=== PATIENT | female | born 1950 | race American Indian/Alaskan Native ===

== ENCOUNTER 2019-01-04 16:21 | Emergency (ER) | payer SELFPAY ==
[2019-01-04] MEDS ORDERED: NACL 0.9% 1000 ML IV ONE (16:37)
--- NOTE | 2019-01-04 16:41 | Emergency Department Report ---
Blank Doc - Documentation Documentation: C/O fever, dysuria, time 1 weeks. PMH Dm, HTN This initial assessment diagnostic orders/clinical plan/treatment (s) is/Are subject change based on patient's health status, clinical progression and re- assessment by fellow clinical providers in the ED. Further treatment and work-up at subsequent clinical providers discretion. Patient/guardians urged not to elope from their condition may be serious if not clinically assessed and managed. Initial order include: Code sepsis
--- NOTE | 2019-01-04 16:58 | Emergency Department Report ---
ED General Adult HPI - General Chief complaint: Urogenital-Female Stated complaint: HIGHFEVER/POSS UTI/DEHYDRATED Time Seen by Provider: 01/04/19 16:35 Source: patient Mode of arrival: Ambulatory Limitations: No Limitations - History of Present Illness Initial comments: Patient is a 68-year-old female that presents emergency room with complaints of dysuria and fever. Patient states that her symptoms started about 24 hours ago and have been worsening. Patient denies pain. Patient denies back pain. Patient denies abdominal pain. Patient denies nausea vomiting. Patient states she is just not feeling good. Patient complains of fatigue. -: Sudden Severity scale (0 -10): 0 Consistency: constant Improves with: rest Worsens with: other (urination) Associated Symptoms: fever/chills, malaise. denies: confusion, chest pain, cough, diaphoresis, headaches, loss of appetite, nausea/vomiting, rash, seizure, shortness of breath, syncope, weakness Treatments Prior to Arrival: none - Related Data Home Medications Medication Instructions Recorded Confirmed Last Taken Aspirin EC [Aspirin Enteric Coated 1 tab PO DAILY 11/08/14 11/08/14 11/07/14 TAB] Clopidogrel Bisulfate [Plavix] 75 mg PO DAILY 11/08/14 11/08/14 11/07/14 Glimepiride [Amaryl] 2 mg PO QAM 11/08/14 11/08/14 11/07/14 HYDROcodone/APAP 5-325 [[place] 1 tab PO TID 11/08/14 11/08/14 11/07/14 5-325 mg TAB] Insulin Lispro [HumaLOG] 0 - 20 unit SQ TID 11/08/14 11/08/14 11/07/14 Methocarbamol [Robaxin] 750 mg PO Q8H PRN 11/08/14 11/08/14 11/07/14 Telmisartan Tab [Micardis] 40 mg PO QDAY 11/08/14 11/08/14 11/07/14 Triamter/Hctz 37.5-25 mg 0.5 tab PO DAILY 11/08/14 11/08/14 11/07/14 [Maxzide-25] Verapamil HCl [Verelan] 360 mg PO DAILY 11/08/14 11/08/14 11/07/14 cloNIDine [Catapres] 0.1 mg PO BID 11/08/14 11/08/14 11/07/14 metFORMIN [Glucophage] 500 mg PO BID 11/08/14 11/08/14 11/07/14 Previous Rx's Medication Instructions Recorded Last Taken Type Cyclobenzaprine [Flexeril 10mg] 10 mg PO TID PRN #30 tablet 11/08/14 Unknown Rx Oxycodone HCl/Acetaminophen 1 each PO Q6HR PRN #30 tablet 11/08/14 Unknown Rx [Percocet 10-325 mg] Sulfamethoxazole/Trimethoprim 1 each PO BID 10 Days #20 tablet 01/04/19 Unknown Rx [Bactrim Ds Tablet] Allergies Allergy/AdvReac Type Severity Reaction Status Date / Time No Known Allergies Allergy Verified 01/04/19 19:15 ED Review of Systems ROS: Stated complaint: HIGHFEVER/POSS UTI/DEHYDRATED Other details as noted in HPI Constitutional: chills, fever, malaise Eyes: denies: eye pain, eye discharge, vision change ENT: denies: ear pain, throat pain Respiratory: denies: cough, shortness of breath, wheezing Cardiovascular: denies: chest pain, palpitations Endocrine: no symptoms reported Gastrointestinal: denies: abdominal pain, nausea, diarrhea Genitourinary: urgency, dysuria, frequency. denies: discharge Musculoskeletal: denies: back pain, joint swelling, arthralgia Skin: denies: rash, lesions Neurological: denies: headache, weakness, paresthesias Psychiatric: denies: anxiety, depression Hematological/Lymphatic: denies: easy bleeding, easy bruising ED Past Medical Hx - Past Medical History Previous Medical History?: Yes Hx Hypertension: Yes Hx CVA: Yes (TIAx2) Hx Diabetes: Yes - Surgical History Past Surgical History?: Yes Additional Surgical History: partial hysterectomy - Family History Family history: no significant - Social History Smoking Status: Never Smoker Substance Use Type: Alcohol - Medications Home Medications: Home Medications Medication Instructions Recorded Confirmed Last Taken Type Aspirin EC [Aspirin Enteric Coated 1 tab PO DAILY 11/08/14 11/08/14 11/07/14 History TAB] Clopidogrel Bisulfate [Plavix] 75 mg PO DAILY 11/08/14 11/08/14 11/07/14 History Cyclobenzaprine [Flexeril 10mg] 10 mg PO TID PRN #30 tablet 11/08/14 Unknown Rx Glimepiride [Amaryl] 2 mg PO QAM 11/08/14 11/08/14 11/07/14 History HYDROcodone/APAP 5-325 [[place] 1 tab PO TID 11/08/14 11/08/14 11/07/14 History 5-325 mg TAB] Insulin Lispro [HumaLOG] 0 - 20 unit SQ TID 11/08/14 11/08/14 11/07/14 History Methocarbamol [Robaxin] 750 mg PO Q8H PRN 11/08/14 11/08/14 11/07/14 History Oxycodone HCl/Acetaminophen 1 each PO Q6HR PRN #30 tablet 11/08/14 Unknown Rx [Percocet 10-325 mg] Telmisartan Tab [Micardis] 40 mg PO QDAY 11/08/14 11/08/14 11/07/14 History Triamter/Hctz 37.5-25 mg 0.5 tab PO DAILY 11/08/14 11/08/14 11/07/14 History [Maxzide-25] Verapamil HCl [Verelan] 360 mg PO DAILY 11/08/14 11/08/14 11/07/14 History cloNIDine [Catapres] 0.1 mg PO BID 11/08/14 11/08/14 11/07/14 History metFORMIN [Glucophage] 500 mg PO BID 11/08/14 11/08/14 11/07/14 History Sulfamethoxazole/Trimethoprim 1 each PO BID 10 Days #20 tablet 01/04/19 Unknown Rx [Bactrim Ds Tablet] ED Physical Exam - General Limitations: No Limitations General appearance: alert, in no apparent distress - Head Head exam: Present: atraumatic, normocephalic - Eye Eye exam: Present: normal appearance - ENT ENT exam: Present: mucous membranes moist - Neck Neck exam: Present: normal inspection - Respiratory Respiratory exam: Present: normal lung sounds bilaterally. Absent: respiratory distress, wheezes, rales, rhonchi - Cardiovascular Cardiovascular Exam: Present: regular rate, normal rhythm. Absent: systolic murmur, diastolic murmur, rubs, gallop - GI/Abdominal GI/Abdominal exam: Present: soft, normal bowel sounds. Absent: distended, tenderness, guarding, rebound - Rectal Rectal exam: Present: deferred - Extremities Exam Extremities exam: Present: normal inspection, full ROM - Back Exam Back exam: Present: normal inspection. Absent: tenderness, CVA tenderness (R), CVA tenderness (L) - Neurological Exam Neurological exam: Present: alert, oriented X3 - Psychiatric Psychiatric exam: Present: normal affect, normal mood - Skin Skin exam: Present: warm, dry, intact, normal color. Absent: rash ED Course Vital Signs 01/04/19 01/04/19 01/04/19 16:35 16:58 17:01 Temperature 101.6 F H Pulse Rate 124 H 110 H 107 H Respiratory 20 13 11 L Rate Blood Pressure 219/100 154/76 O2 Sat by Pulse 97 97 Oximetry 01/04/19 01/04/19 01/04/19 17:15 17:31 17:45 Temperature Pulse Rate 97 H 95 H Respiratory 12 10 L 17 Rate Blood Pressure 154/76 154/76 154/76 O2 Sat by Pulse 99 99 95 Oximetry 01/04/19 01/04/19 01/04/19 18:01 18:15 18:26 Temperature Pulse Rate 96 H 94 H Respiratory 9 L 7 L 15 Rate Blood Pressure 191/77 O2 Sat by Pulse 100 96 99 Oximetry 01/04/19 01/04/19 01/04/19 18:31 18:45 19:01 Temperature Pulse Rate 72 107 H Respiratory 8 L 11 L 13 Rate Blood Pressure 191/77 191/77 159/67 O2 Sat by Pulse 99 99 100 Oximetry 01/04/19 01/04/19 01/04/19 19:15 19:31 19:55 Temperature 99.4 F Pulse Rate Respiratory 10 L 11 L Rate Blood Pressure 165/79 133/64 O2 Sat by Pulse 99 99 Oximetry - Reevaluation(s) Reevaluation #1: Patient connected to a residential monitor. Blood pressure is 140/80 on the residential monitor. Heart rate is 93. Patient does not appear to be septic. Code sepsis will be canceled. 01/04/19 17:00 Discussed all results with patient. Blood pressure elevated ER. Patient states that she has not taken her medications today. Patient states that she takes all 5 of her blood pressure medications at night. Patient given discharge instructions. Patient voiced understanding of discharge instructions 01/04/19 18:58 Patient's current blood pressure is 165/90. Patient will be discharged home. Instructed to take her blood pressure medications as she was previously directed by her primary care and outpatient physicians 01/04/19 19:17 Patient's temperature is improving. Patient states she feels better. Patient will be discharged home. While in ER patient's vital signs temperature have improved. 01/04/19 20:02 ED Medical Decision Making - Lab Data Result diagrams: 01/04/19 16:42 01/04/19 16:42 - Medical Decision Making Patient is 68-year-old female that presents emergency room with complaints of dysuria. Patient denied any pain. Patient also found to have a fever and tachycardia in triage. While in triage, a code sepsis was called. Sepsis was canceled due to the fact the patient's white count was normal and heart rate normalized and his lactic acid negative. His believe that the patient is not septic. His believe the patient just a simple UTI. Patient given antibiotics in the ER. Patient given fluids. Patient is stable for discharge. Patient's labs unremarkable. Patient will be given antibiotics orally to take at home. Patient will start antibiotics in the morning. - Differential Diagnosis uti. dysuria Critical care attestation.: If time is entered above; I have spent that time in minutes in the direct care of this critically ill patient, excluding procedure time. ED Disposition Clinical Impression: Tachycardia Hypertension Qualifiers: Hypertension type: essential hypertension Qualified Code(s): I10 - Essential (primary) hypertension UTI (urinary tract infection) Qualifiers: Urinary tract infection type: acute cystitis Hematuria presence: with hematuria Qualified Code(s): N30.01 - Acute cystitis with hematuria Fever Qualifiers: Fever type: unspecified Qualified Code(s): R50.9 - Fever, unspecified Disposition: DC-01 TO HOME OR SELFCARE Is pt being admited?: No Does the pt Need Aspirin: No Condition: Stable Instructions: Urinary Tract Infection in Women (ED), Fever in Adults (ED), Dysuria (ED), Hypertension (ED) Additional Instructions: Patient the follow up with primary care in 2-3 days. Patient to return to your condition worsens. Patient to increase water. Patient to rest. Patient take meds as directed. Patient take Tylenol or ibuprofen when necessary for pain or fever. Prescriptions: Sulfamethoxazole/Trimethoprim [Bactrim Ds Tablet] 1 each PO BID 10 Days #20 tablet Referrals: [facility], MD [Primary Care Provider] - 2-3 Days Time of Disposition: 20:05
[2019-01-04 17:13] LABS: Basophils % (Auto) 0.5 % (0.0-1.8); Eosinophils % (Auto) 0.1 % (0.0-4.3); Hematocrit 38.5 % (30.3-42.9); Hemoglobin 13.4 gm/dl (10.1-14.3); Lymphocytes # (Auto) 1.3 K/mm3 (1.2-5.4); Lymphocytes % (Auto) 17.4 % (13.4-35.0); Mean Corpuscular HGB Conc 35 % (30-34); Mean Corpuscular Hemoglobin 28 pg (28-32); Mean Corpuscular Volume 80 fl (79-97); Monocytes # (Auto) 0.8 K/mm3 (0.0-0.8); Monocytes % (Auto) 10.2 % (0.0-7.3); Platelet Count 163 K/mm3 (140-440); Red Blood Count 4.83 M/mm3 (3.65-5.03); Red Cell Distribution Width 15.3 % (13.2-15.2)
[2019-01-04 17:30] LABS: Alanine Aminotransferase 11 units/L (7-56); Albumin 4.2 g/dL (3.9-5); BUN/Creatinine Ratio 14; Blood Urea Nitrogen 10 mg/dL (7-17); Calcium 9.4 mg/dL (8.4-10.2); Hemolysis Index 2
[2019-01-04] MEDS ORDERED: MAXIPIME/NS 1 GM/100 ML 1 GM/100 ML BAG IV ONE (17:42)
[2019-01-04 18:42] LABS: Bacteria,Urine 1+ /HPF (Negative); Bilirubin,Urine NEG (Negative); Blood,Urine NEG (Negative); Color,Urine Yellow (Yellow); Mucus,Urine FEW /HPF
[2019-01-04 18:52] LABS: WBC,Urine > 182.0 /HPF (0.0-6.0)
[2019-01-04] MEDS ORDERED: TYLENOL PO ONE (19:05)
[2019-01-04] MEDS ORDERED: TYLENOL ONE (19:08)
[2019-01-04 19:42] VITALS: BP 133/64
== END 2019-01-04 20:25 | disposition home or self-care (01) ==
LOC: ED 16:21
DX: N39.0 Urinary tract infection, site not specified (principal); R50.9 Fever, unspecified; R53.83 Other fatigue; R00.0 Tachycardia, unspecified; I10 Essential (primary) hypertension; E11.9 Type 2 diabetes mellitus without complications; Z86.73 Personal history of transient ischemic attack (TIA), and cerebral infarction without residual deficits; Z90.710 Acquired absence of both cervix and uterus; Z79.4 Long term (current) use of insulin
CPT/HCPCS: 36415; 80053; 81001; 82140; 82962; 85025; 87040; 87086; 96365; 99284; J0692; J7030

== ENCOUNTER 2019-09-13 05:16 | Observation (INO) | payer BC, MEDICARE ==
--- NOTE | 2019-09-13 07:01 | XRay Report ---
CHEST 1 VIEW 09/13/2019 6:34 AM INDICATION / CLINICAL INFORMATION: Dysrhythmia. COMPARISON: None available. FINDINGS: SUPPORT DEVICES: None. HEART / MEDIASTINUM: No significant abnormality. LUNGS / PLEURA: No significant pulmonary or pleural abnormality. No pneumothorax. ADDITIONAL FINDINGS: No significant additional findings. IMPRESSION: 1. No acute findings. Signer Name: Moose Verduzco MD Signed: 09/13/2019 6:56 AM Workstation Name: [id number]
[2019-09-13] MEDS ORDERED: hydrALAZINE 20 MG/1 ML INJ IV ONE ×2 (07:10→10:10)
--- NOTE | 2019-09-13 07:13 | Emergency Department Report ---
ED General Adult HPI - General Chief complaint: Arrhythmia/Palpitations Stated complaint: HEART RACING/SWEATING Time Seen by Provider: 09/13/19 06:33 Source: patient Mode of arrival: Ambulatory Limitations: No Limitations - History of Present Illness Initial comments: This is a 69-year-old female is seen she was awoken by her heart racing. She denies chest tightness although the triage note states the same. She states that this happened several times over the last week. She has not been diagnosed with tachycardia in the past. She admits noncompliance with her blood pressure medicine which she states she got for the first time yesterday but did not take them. She does not complain of acute shortness of breath nor cough. At the time of my encounter she has a heart rate in the 40s. She has had several episodes of heart racing of few minutes duration. Patient states that she was treated for myocardial infarction in 2014. -: minutes(s) Associated Symptoms: denies other symptoms - Related Data Home Medications Medication Instructions Recorded Confirmed Last Taken Aspirin EC 1 tab PO DAILY 11/08/14 11/08/14 11/07/14 Clopidogrel Bisulfate [Plavix] 75 mg PO DAILY 11/08/14 11/08/14 11/07/14 Glimepiride [Amaryl] 2 mg PO QAM 11/08/14 11/08/14 11/07/14 HYDROcodone/APAP 5-325 [[place] 1 tab PO TID 11/08/14 11/08/14 11/07/14 5-325 mg TAB] Insulin Lispro [HumaLOG] 0 - 20 unit SQ TID 11/08/14 11/08/14 11/07/14 Telmisartan Tab [Micardis] 40 mg PO QDAY 11/08/14 11/08/14 11/07/14 Triamter/Hctz 37.5-25 mg 0.5 tab PO DAILY 11/08/14 11/08/14 11/07/14 [Maxzide-25] Verapamil HCl [Verelan] 360 mg PO DAILY 11/08/14 11/08/14 11/07/14 cloNIDine [Catapres] 0.1 mg PO BID 11/08/14 11/08/14 11/07/14 metFORMIN [Glucophage] 500 mg PO BID 11/08/14 11/08/14 11/07/14 methOCARBAMOL [Robaxin] 750 mg PO Q8H PRN 11/08/14 11/08/14 11/07/14 Previous Rx's Medication Instructions Recorded Last Taken Type Cyclobenzaprine [Flexeril 10mg] 10 mg PO TID PRN #30 tablet 11/08/14 Unknown Rx Oxycodone HCl/Acetaminophen 1 each PO Q6HR PRN #30 tablet 11/08/14 Unknown Rx [Percocet 10-325 mg] Sulfamethoxazole/Trimethoprim 1 each PO BID 10 Days #20 tablet 01/04/19 Unknown Rx [Bactrim Ds Tablet] Allergies Allergy/AdvReac Type Severity Reaction Status Date / Time No Known Allergies Allergy Verified 01/04/19 19:15 ED Review of Systems ROS: Stated complaint: HEART RACING/SWEATING Other details as noted in HPI Constitutional: denies: chills, fever Eyes: denies: eye pain, eye discharge, vision change ENT: denies: ear pain, throat pain Respiratory: denies: cough, shortness of breath, wheezing Cardiovascular: palpitations. denies: chest pain Endocrine: no symptoms reported Gastrointestinal: denies: abdominal pain, nausea, diarrhea Genitourinary: denies: urgency, dysuria, discharge Musculoskeletal: denies: back pain, joint swelling, arthralgia Skin: denies: rash, lesions Neurological: denies: headache, weakness, paresthesias Psychiatric: denies: anxiety, depression Hematological/Lymphatic: denies: easy bleeding, easy bruising ED Past Medical Hx - Past Medical History Hx Hypertension: Yes Hx CVA: Yes (TIAx2) Hx Diabetes: Yes - Surgical History Additional Surgical History: partial hysterectomy - Social History Smoking Status: Never Smoker Substance Use Type: None - Medications Home Medications: Home Medications Medication Instructions Recorded Confirmed Last Taken Type Aspirin EC 1 tab PO DAILY 11/08/14 11/08/14 11/07/14 History Clopidogrel Bisulfate [Plavix] 75 mg PO DAILY 11/08/14 11/08/14 11/07/14 History Cyclobenzaprine [Flexeril 10mg] 10 mg PO TID PRN #30 tablet 11/08/14 Unknown Rx Glimepiride [Amaryl] 2 mg PO QAM 11/08/14 11/08/14 11/07/14 History HYDROcodone/APAP 5-325 [[place] 1 tab PO TID 11/08/14 11/08/14 11/07/14 History 5-325 mg TAB] Insulin Lispro [HumaLOG] 0 - 20 unit SQ TID 11/08/14 11/08/14 11/07/14 History Oxycodone HCl/Acetaminophen 1 each PO Q6HR PRN #30 tablet 11/08/14 Unknown Rx [Percocet 10-325 mg] Telmisartan Tab [Micardis] 40 mg PO QDAY 11/08/14 11/08/14 11/07/14 History Triamter/Hctz 37.5-25 mg 0.5 tab PO DAILY 11/08/14 11/08/14 11/07/14 History [Maxzide-25] Verapamil HCl [Verelan] 360 mg PO DAILY 11/08/14 11/08/14 11/07/14 History cloNIDine [Catapres] 0.1 mg PO BID 11/08/14 11/08/14 11/07/14 History metFORMIN [Glucophage] 500 mg PO BID 11/08/14 11/08/14 11/07/14 History methOCARBAMOL [Robaxin] 750 mg PO Q8H PRN 11/08/14 11/08/14 11/07/14 History Sulfamethoxazole/Trimethoprim 1 each PO BID 10 Days #20 tablet 01/04/19 Unknown Rx [Bactrim Ds Tablet] ED Physical Exam - General Limitations: No Limitations General appearance: obese - Head Head exam: Present: atraumatic, normocephalic - Eye Eye exam: Present: normal appearance. Absent: scleral icterus - ENT ENT exam: Present: mucous membranes moist - Neck Neck exam: Present: normal inspection. Absent: tenderness, meningismus - Respiratory Respiratory exam: Present: normal lung sounds bilaterally. Absent: respiratory distress - Cardiovascular Cardiovascular Exam: Present: normal rhythm, bradycardia. Absent: systolic murmur, diastolic murmur, rubs, gallop - GI/Abdominal GI/Abdominal exam: Present: soft, normal bowel sounds. Absent: distended, tenderness, guarding, rebound, rigid - Extremities Exam Extremities exam: Present: normal inspection, full ROM, normal capillary refill. Absent: tenderness, pedal edema, joint swelling, calf tenderness - Back Exam Back exam: Present: normal inspection - Neurological Exam Neurological exam: Present: alert, oriented X3, CN II-XII intact. Absent: motor sensory deficit - Psychiatric Psychiatric exam: Present: normal mood, flat affect - Skin Skin exam: Present: warm, dry, intact, normal color. Absent: rash ED Course Vital Signs 09/13/19 09/13/19 09/13/19 05:23 07:00 07:16 Temperature 98.6 F Pulse Rate 51 L 44 L 46 L Respiratory 18 11 L 7 L Rate Blood Pressure 190/95 214/85 214/85 Blood Pressure [Left] O2 Sat by Pulse 99 98 99 Oximetry 09/13/19 09/13/19 09/13/19 07:24 07:30 07:46 Temperature Pulse Rate 48 L 46 L Respiratory 18 11 L 16 Rate Blood Pressure 145/67 145/67 Blood Pressure [Left] O2 Sat by Pulse 100 100 Oximetry 09/13/19 09/13/19 09/13/19 08:15 08:30 09:00 Temperature Pulse Rate 45 L 45 L 45 L Respiratory 12 12 14 Rate Blood Pressure 116/77 167/76 Blood Pressure 115/67 [Left] O2 Sat by Pulse 96 97 100 Oximetry 09/13/19 09:34 Temperature Pulse Rate 42 L Respiratory 14 Rate Blood Pressure Blood Pressure 174/78 [Left] O2 Sat by Pulse 100 Oximetry - Reevaluation(s) Reevaluation #1: Denies persistent tachycardia as low as 42. She complains of tachycardia at home. It is unknown whether she has a tachybradycardia syndrome or whether this is related to medication. She has mildly elevated lactic acid level. She has a history of UTI. Urinalysis is yet pending. Blood cultures obtained. Poorly controlled blood pressure and hypomagnesemia. She is referred to the hospitalist service for further care and likely observation admission. 09/13/19 09:51 ED Medical Decision Making - Lab Data Result diagrams: 09/13/19 06:54 09/13/19 06:54 Laboratory Results - last 24 hr 09/13/19 09/13/19 09/13/19 06:54 06:54 06:54 WBC 6.1 RBC 4.85 Hgb 13.5 Hct 39.5 MCV 82 MCH 28 MCHC 34 RDW 14.7 Lymph % (Auto) 36.4 H [place] % (Auto) 6.0 Eos % (Auto) 1.1 Baso % (Auto) 0.5 Lymph # 2.2 [place] # 0.4 Eos # 0.1 Baso # 0.0 Seg Neutrophils % 56.0 Seg Neutrophils # 3.4 PT 12.6 INR 0.95 APTT 35.4 Sodium 140 Potassium 3.8 Chloride 101.5 Carbon Dioxide 25 Anion Gap 17 BUN 16 Creatinine 0.6 L Estimated GFR > 60 BUN/Creatinine Ratio 27 Glucose 194 H POC Glucose Lactic Acid Calcium 9.6 Magnesium 1.60 L Total Creatine Kinase 114 CK-MB (CK-2) 3.8 CK-MB (CK-2) Rel Index 3.3 Troponin T < 0.010 09/13/19 09/13/19 06:54 07:11 WBC RBC Hgb Hct MCV MCH MCHC RDW Lymph % (Auto) [place] % (Auto) Eos % (Auto) Baso % (Auto) Lymph # [place] # Eos # Baso # Seg Neutrophils % Seg Neutrophils # PT INR APTT Sodium Potassium Chloride Carbon Dioxide Anion Gap BUN Creatinine Estimated GFR BUN/Creatinine Ratio Glucose POC Glucose 181 H Lactic Acid 2.20 H* Calcium Magnesium Total Creatine Kinase CK-MB (CK-2) CK-MB (CK-2) Rel Index Troponin T Critical care attestation.: If time is entered above; I have spent that time in minutes in the direct care of this critically ill patient, excluding procedure time. ED Disposition Clinical Impression: Bradycardia, Tachycardia-bradycardia syndrome, Elevated lactic acid level, Hypomagnesemia, Poorly controlled blood pressure Type 2 diabetes mellitus with hyperglycemia Qualifiers: Diabetes mellitus rodent exterminator insulin use: with rodent exterminator use Qualified Code(s): E11.65 - Type 2 diabetes mellitus with hyperglycemia; Z79.4 - terminal carman (current) use of insulin Disposition: OP ADMIT IP TO THIS HOSP Is pt being admited?: Yes Does the pt Need Aspirin: Yes Condition: Stable Instructions: Diabetes Mellitus Type 2 in Adults (ED) Referrals: PRIMARY CARE, [Primary Care Provider] - 3-5 Days Time of Disposition: 09:51
[2019-09-13 07:27] LABS: Basophils % (Auto) 0.5 % (0.0-1.8); Eosinophils # (Auto) 0.1 K/mm3 (0.0-0.4); Eosinophils % (Auto) 1.1 % (0.0-4.3); Hematocrit 39.5 % (30.3-42.9); Hemoglobin 13.5 gm/dl (10.1-14.3); Lymphocytes # (Auto) 2.2 K/mm3 (1.2-5.4); Lymphocytes % (Auto) 36.4 % (13.4-35.0); Mean Corpuscular HGB Conc 34 % (30-34); Mean Corpuscular Volume 82 fl (79-97); Monocytes # (Auto) 0.4 K/mm3 (0.0-0.8); Red Blood Count 4.85 M/mm3 (3.65-5.03); Red Cell Distribution Width 14.7 % (13.2-15.2)
[2019-09-13 07:31] LABS: INR 0.95 (0.87-1.13)
[2019-09-13 07:32] LABS: Partial Thromboplastin Time 35.4 Sec. (24.2-36.6)
[2019-09-13 07:40] LABS: Creatine Kinase MB 3.8 ng/mL (0.0-4.0)
[2019-09-13 07:41] LABS: BUN/Creatinine Ratio 27; Blood Urea Nitrogen 16 mg/dL (7-17); Calcium 9.6 mg/dL (8.4-10.2); Hemolysis Index 2
[2019-09-13 08:33] LABS: Free T4 (Free Thyroxine) 1.2 ng/dL (0.76-1.46)
[2019-09-13 08:48] LABS: Platelet Count 132 K/mm3 (140-440)
[2019-09-13] MEDS ORDERED: MAGNESIUM SULFATE 2 GM/50 ML BAG IV ONE ×2 (09:49→10:35)
[2019-09-13] MEDS ORDERED: ASPIRIN 81 MG TAB CHEW PO ONE (09:53)
[2019-09-13] MEDS ORDERED: DEXTROSE 50% IN WATER (25GM) 50 ML SYRINGE IV PRN ×2 (10:35→10:38)
[2019-09-13] MEDS ORDERED: ALBUTEROL 2.5 MG/3 ML NEBU IH PRN (10:35)
[2019-09-13] MEDS ORDERED: ACETAMINOPHEN 325 MG TAB PO PRN (10:35)
[2019-09-13] MEDS ORDERED: ONDANSETRON 4 MG/2 ML INJ IV PRN (10:35)
[2019-09-13] MEDS ORDERED: ASPIRIN 81 MG TAB CHEW ONE (10:35)
[2019-09-13] MEDS ORDERED: hydrALAZINE 20 MG/1 ML INJ ONE (10:36)
[2019-09-13 11:13] LABS: Bilirubin,Urine NEG (Negative); Blood,Urine NEG (Negative); Color,Urine Yellow (Yellow); Mucus,Urine FEW /HPF; Protein,Urine <15 mg/dL mg/dL (Negative); RBC,Urine < 1.0 /HPF (0.0-6.0); Urobilinogen,Urine < 2.0 mg/dL (<2.0)
[2019-09-13] MEDS: INSULIN LISPRO 100 UNIT/ML SUB-Q SCH ×3 (12:44→21:19)
[2019-09-13] MEDS: DOCUSATE SODIUM 100 MG CAP PO SCH ×2 (12:49→21:05)
--- NOTE | 2019-09-13 13:10 | Consultation ---
History of Present Illness Consult date: 09/13/19 Requesting physician: LORNA JOSE Consult reason: other (tachy damien syndrome) History of present illness: The pt is a 69-year-old female with a past medical history of reported CAD s/p AMI with PCI at [facility] in 2014, HTN, DM, obesity. She is previously unknown to our practice. She presented with c/o intermittent palpitations, heart racing and chest tightness for the past week. She states her symptoms are typically worst in the mornings and ease off as she wakes up and moves around the house. She has not been diagnosed with tachycardia in the past. She admits to noncompliance with her blood pressure medicine which she states she got for the first time yesterday but did not take them. She denies any sob, n/v, diaphoresis, dizziness or syncope. Following arrival, she was noted to have sinus bradycardia with HR low in 40s. No tachycardia has been observed on telemetry yet. Past History Past Medical History: CAD, diabetes, hypertension Past Surgical History: PTCA Social history: denies: smoking, alcohol abuse, prescription drug abuse Medications and Allergies Allergies Allergy/AdvReac Type Severity Reaction Status Date / Time No Known Allergies Allergy Verified 01/04/19 19:15 Home Medications Medication Instructions Recorded Confirmed Last Taken Type Aspirin EC 1 tab PO DAILY 11/08/14 09/13/19 11/07/14 History Clopidogrel Bisulfate [Plavix] 75 mg PO DAILY 11/08/14 09/13/19 11/07/14 History Cyclobenzaprine [Flexeril 10mg] 10 mg PO TID PRN #30 tablet 11/08/14 09/13/19 Unknown Rx Glimepiride [Amaryl] 2 mg PO QAM 11/08/14 09/13/19 11/07/14 History HYDROcodone/APAP 5-325 [[place] 1 tab PO TID 11/08/14 09/13/19 11/07/14 History 5-325 mg TAB] Insulin Lispro [HumaLOG] 0 - 20 unit SQ TID 11/08/14 09/13/19 11/07/14 History Oxycodone HCl/Acetaminophen 1 each PO Q6HR PRN #30 tablet 11/08/14 09/13/19 Unknown Rx [Percocet 10-325 mg] Telmisartan Tab [Micardis] 40 mg PO QDAY 11/08/14 09/13/19 11/07/14 History Triamter/Hctz 37.5-25 mg 0.5 tab PO DAILY 11/08/14 09/13/19 11/07/14 History [Maxzide-25] Verapamil HCl [Verelan] 360 mg PO DAILY 11/08/14 09/13/19 11/07/14 History cloNIDine [Catapres] 0.2 mg PO BID 11/08/14 09/13/19 11/07/14 History metFORMIN [Glucophage] 500 mg PO BID 11/08/14 09/13/19 11/07/14 History methOCARBAMOL [Robaxin] 750 mg PO Q8H PRN 11/08/14 09/13/19 11/07/14 History Sulfamethoxazole/Trimethoprim 1 each PO BID 10 Days #20 tablet 01/04/19 09/13/19 Unknown Rx [Bactrim Ds Tablet] AtorvaSTATin [Lipitor] 40 mg PO QDAY 09/13/19 09/13/19 Unknown History Losartan Potassium 100 mg PO QAM 09/13/19 09/13/19 Unknown History Meclizine [Antivert] 25 mg PO TID PRN 09/13/19 09/13/19 Unknown History Active Meds: Active Medications Acetaminophen (Tylenol) 650 mg PO Q4H PRN PRN Reason: Pain MILD(1-3)/Fever >100.5/DEGROOT Albuterol (Proventil) 2.5 mg IH Q4HRT PRN PRN Reason: Shortness Of Breath Dextrose (D50w (25gm) Syringe) 50 ml IV Q30MIN PRN PRN Reason: Hypoglycemia Docusate Sodium (Colace) 100 mg PO BID [facility] Last Admin: 09/13/19 12:49 Dose: 100 mg Documented by: Hydralazine HCl (Apresoline) 20 mg IV Q4HR PRN PRN Reason: Hypertension Insulin Human Lispro (Humalog) 0 unit SUB-Q ACHS [facility]; Protocol Last Admin: 09/13/19 12:44 Dose: Not Given Documented by: Ondansetron HCl (Zofran) 4 mg IV Q8H PRN PRN Reason: Nausea And Vomiting Sodium Chloride (Sodium Chloride Flush Syringe 10 Ml) 10 ml IV BID [facility] Last Admin: 09/13/19 12:49 Dose: 10 ml Documented by: Sodium Chloride (Sodium Chloride Flush Syringe 10 Ml) 10 ml IV PRN PRN PRN Reason: LINE FLUSH Review of Systems Constitutional: no weight loss, no weight gain, no fever, no chills, no sweats Ears, nose, mouth and throat: no ear pain, no nose pain, no sinus pressure, no sinus pain Cardiovascular: chest pain, palpitations, rapid/irregular heart beat, high blood pressure, no orthopnea, no edema, no syncope, no lightheadedness, no shortness of breath, no dyspnea on exertion, no leg edema Respiratory: no cough, no shortness of breath, no dyspnea on exertion, no congestion, no wheezing, no pain on inspiration Gastrointestinal: no abdominal pain, no nausea, no vomiting, no diarrhea, no constipation, no change in bowel habits Genitourinary Female: no pelvic pain, no flank pain, no dysuria, no urinary frequency, no urgency Musculoskeletal: no neck stiffness, no neck pain, no shooting arm pain, no arm numbness/tingling, no low back pain, no shooting leg pain Integumentary: no rash, no pruritis, no redness, no sores, no wounds Neurological: no head injury, no paralysis, no weakness, no parathesias, no numbness, no tingling, no seizures, no syncope Psychiatric: no anxiety Endocrine: no cold intolerance, no heat intolerance Hematologic/Lymphatic: no easy bruising, no easy bleeding Allergic/Immunologic: no urticaria Physical Examination Vital Signs Temp Pulse Resp BP Pulse Ox 98.6 F 51 L 18 190/95 99 09/13/19 05:23 09/13/19 05:23 09/13/19 05:23 09/13/19 05:23 09/13/19 05:23 General appearance: no acute distress HEENT: Positive: PERRL, Normocephaly, Mucus Membranes Moist Neck: Positive: neck supple, trachea midline Cardiac: Positive: Regular Rhythm, S1/S2 Lungs: Positive: Decreased Breath Sounds Neuro: Positive: Grossly Intact Abdomen: Negative: Tender Skin: Negative: Rash Musculoskeletal: No Pain Extremities: Absent: edema Results 09/13/19 06:54 09/13/19 06:54 Cardiac Enzymes 09/13/19 Range/Units 06:54 CK-MB (CK-2) 3.8 (0.0-4.0) ng/mL Coagulation 09/13/19 Range/Units 06:54 PT 12.6 (12.2-14.9) Sec. INR 0.95 (0.87-1.13) APTT 35.4 (24.2-36.6) Sec. CBC 09/13/19 Range/Units 06:54 WBC 6.1 (4.5-11.0) K/mm3 RBC 4.85 (3.65-5.03) M/mm3 Hgb 13.5 (10.1-14.3) gm/dl Hct 39.5 (30.3-42.9) % Plt Count 132 L (140-440) K/mm3 Lymph # 2.2 (1.2-5.4) K/mm3 [place] # 0.4 (0.0-0.8) K/mm3 Eos # 0.1 (0.0-0.4) K/mm3 Baso # 0.0 (0.0-0.1) K/mm3 Comprehensive Metabolic Panel 09/13/19 Range/Units 06:54 Sodium 140 (137-145) mmol/L Potassium 3.8 (3.6-5.0) mmol/L Chloride 101.5 (98-107) mmol/L Carbon Dioxide 25 (22-30) mmol/L BUN 16 (7-17) mg/dL Creatinine 0.6 L (0.7-1.2) mg/dL Glucose 194 H (65-100) mg/dL Calcium 9.6 (8.4-10.2) mg/dL - Imaging and Cardiology Echo: pending EKG: report reviewed, image reviewed EKG interpretations - Telemetry EKG Rhythm: Sinus Bradycardia - EKG Sinus rhythms and dysrhythmias: sinus bradycardia Assessment and Plan Cont to observe on telemetry. Obtain echo. Replete Mg. Optimize anti- hypertensive regimen - pt reports her home medication regimen includes coreg and clonidine, will d/c clonidine in setting of sinus bradycardia and initiate losartan. Resume home ASA and plavix. Plan for lexiscan MPI stress test in AM. NPO after MN. The patient has been seen in conjunction with Dr. Higuera who agrees with the assessment and plan of care. - Patient Problems (1) Sinus bradycardia Current Visit: Yes Status: Acute (2) Palpitations Current Visit: Yes Status: Acute (3) Poorly controlled blood pressure Current Visit: Yes Status: Chronic (4) Type 2 diabetes mellitus with hyperglycemia Current Visit: Yes Status: Chronic Qualifiers: Diabetes mellitus custodial insulin use: with terminal computer operator use Qualified Code(s): E11.65 - Type 2 diabetes mellitus with hyperglycemia; Z79.4 - supervisor intermediates (current) use of insulin (5) CAD (coronary artery disease) Current Visit: Yes Status: Chronic (6) Stented coronary artery Current Visit: Yes Status: Chronic (7) Obesity Current Visit: Yes Status: Chronic (8) Hypomagnesemia Current Visit: Yes Status: Acute
[2019-09-13] MEDS ORDERED: LOSARTAN POTASSIUM 100 MG PO SCH (13:11)
[2019-09-13] MEDS: hydrALAZINE 20 MG/1 ML INJ IV PRN ×2 (13:31→21:01)
[2019-09-13] MEDS ORDERED: LOSARTAN 50 MG TAB PO SCH (14:00)
--- NOTE | 2019-09-13 14:08 | History and Physical Report ---
History of Present Illness Date of examination: 09/13/19 Date of admission: 09/13/19 09:59 Chief complaint: Heart racing History of present illness: 69-year-old -[place] female with past medical history significant for DE status post stent, hypertension, hyperlipidemia, diabetes mellitus type 2 presented to the emergency department complaining of racing of heart that started around 2-3 am this morning. Patient stated the episode lasts for 5 minutes. The heart racing was associated with shortness of breath, dizziness, blurring of vision and hand cramps. Patient said everything resolved after 5 minutes. Patient had heart racing for the last one and half week every day in the morning and that resolved with sitting down and taking a deep breath. But this morning sitting down and taking deep breath didn't help her and presented to the ER. Patient denied any chest pain, fever, cough or chills. REVIEW OF SYSTEMS: GENERAL: no weight change, no fatigue, no fever HEAD: no head ache EYES: no blurry vision, no acute visual loss EARS: no hearing loss, no discharge, no earache NOSE: no stuffiness, no sneezing, no discharge MOUTH, THROAT AND NECK: no bleeding gums, no sore throat, no swollen neck CARDIAC: As stated in the HPI. RESPIRATORY: no shortness of breath, no wheeze, no cough, no sputum, no hemoptysis, no asthma GI: no decreased appetite, no nausea, no vomiting, no dysphagia, no diarrhea, no constipation, no abdominal pain URINARY: No urgency, hematuria, dysuria or frequency. MUSCULOSKELETAL: no muscle weakness, no pain, no joint stiffness NEUROLOGIC: no loss of sensation/numbness, no tingling, no tremors, no weak ness/paralysis HEMATOLOGIC: no anemia, no easy bruising SKIN: no rashes ENDOCRINE: no heat/cold intolerance, no polyuria, no polydipsia, no thyroid problems PSYCHIATRIC: no anxiety, no depression, no suicidal ideations Past History Past Medical History: CAD, diabetes, hypertension Past Surgical History: hysterectomy, PTCA Social history: full code. denies: smoking, alcohol abuse, prescription drug abuse, IV drug use Family history: CAD (mother and father), cancer (brother) Medications and Allergies Allergies Allergy/AdvReac Type Severity Reaction Status Date / Time No Known Allergies Allergy Verified 01/04/19 19:15 Home Medications Medication Instructions Recorded Confirmed Last Taken Type Aspirin EC 1 tab PO DAILY 11/08/14 09/13/19 11/07/14 History Clopidogrel Bisulfate [Plavix] 75 mg PO DAILY 11/08/14 09/13/19 11/07/14 History Cyclobenzaprine [Flexeril 10mg] 10 mg PO TID PRN #30 tablet 11/08/14 09/13/19 Unknown Rx Glimepiride [Amaryl] 2 mg PO QAM 11/08/14 09/13/19 11/07/14 History HYDROcodone/APAP 5-325 [[place] 1 tab PO TID 11/08/14 09/13/19 11/07/14 History 5-325 mg TAB] Insulin Lispro [HumaLOG] 0 - 20 unit SQ TID 11/08/14 09/13/19 11/07/14 History Oxycodone HCl/Acetaminophen 1 each PO Q6HR PRN #30 tablet 11/08/14 09/13/19 Unknown Rx [Percocet 10-325 mg] Telmisartan Tab [Micardis] 40 mg PO QDAY 11/08/14 09/13/19 11/07/14 History Triamter/Hctz 37.5-25 mg 0.5 tab PO DAILY 11/08/14 09/13/19 11/07/14 History [Maxzide-25] Verapamil HCl [Verelan] 360 mg PO DAILY 11/08/14 09/13/19 11/07/14 History cloNIDine [Catapres] 0.2 mg PO BID 11/08/14 09/13/19 11/07/14 History metFORMIN [Glucophage] 500 mg PO BID 11/08/14 09/13/19 11/07/14 History methOCARBAMOL [Robaxin] 750 mg PO Q8H PRN 11/08/14 09/13/19 11/07/14 History Sulfamethoxazole/Trimethoprim 1 each PO BID 10 Days #20 tablet 01/04/19 09/13/19 Unknown Rx [Bactrim Ds Tablet] AtorvaSTATin [Lipitor] 40 mg PO QDAY 09/13/19 09/13/19 Unknown History Losartan Potassium 100 mg PO QAM 09/13/19 09/13/19 Unknown History Meclizine [Antivert] 25 mg PO TID PRN 09/13/19 09/13/19 Unknown History Active Meds: Active Medications Acetaminophen (Tylenol) 650 mg PO Q4H PRN PRN Reason: Pain MILD(1-3)/Fever >100.5/DEGROOT Albuterol (Proventil) 2.5 mg IH Q4HRT PRN PRN Reason: Shortness Of Breath Aspirin (Baby Aspirin) 81 mg PO QDAY [facility] Atorvastatin Calcium (Lipitor) 40 mg PO QDAY [facility] Carvedilol (Coreg) 12.5 mg PO BID [facility] Clopidogrel Bisulfate (Plavix) 75 mg PO DAILY [facility] Dextrose (D50w (25gm) Syringe) 50 ml IV Q30MIN PRN PRN Reason: Hypoglycemia Docusate Sodium (Colace) 100 mg PO BID [facility] Last Admin: 09/13/19 12:49 Dose: 100 mg Documented by: Hydralazine HCl (Apresoline) 20 mg IV Q4HR PRN PRN Reason: Hypertension Last Admin: 09/13/19 13:31 Dose: 20 mg Documented by: Insulin Human Lispro (Humalog) 0 unit SUB-Q ACHS [facility]; Protocol Last Admin: 09/13/19 12:44 Dose: Not Given Documented by: Miscellaneous Medication (Losartan Potassium) 100 mg PO QAM [facility] Ondansetron HCl (Zofran) 4 mg IV Q8H PRN PRN Reason: Nausea And Vomiting Sodium Chloride (Sodium Chloride Flush Syringe 10 Ml) 10 ml IV BID [facility] Last Admin: 09/13/19 12:49 Dose: 10 ml Documented by: Sodium Chloride (Sodium Chloride Flush Syringe 10 Ml) 10 ml IV PRN PRN PRN Reason: LINE FLUSH Exam - Physical Exam Narrative exam: Not in cardiopulmonary distress. The patient appeared well nourished and normally developed. Vital signs as documented. Head exam is unremarkable. No scleral icterus . Neck is without jugular venous distension, thyromegaly, or carotid bruits. Lungs are clear to auscultation. Cardiac exam reveals regular rate and Rhythm. Bradycardia. Abdominal exam reveals normal bowel sounds, nontender, no organomegaly. Extremities are nonedematous and both femoral and pedal pulses are normal. PLATE CONDITIONER: Alert and oriented 3. No focal weakness. - Constitutional Vitals: Temp Pulse Resp BP Pulse Ox 98.1 F 91 H 18 157/70 99 09/13/19 11:47 09/13/19 13:52 09/13/19 11:47 09/13/19 13:52 09/13/19 13:52 Results - Labs CBC & Chem 7: 09/13/19 06:54 09/13/19 06:54 Labs: Laboratory Last Values WBC 6.1 K/mm3 (4.5-11.0) 09/13/19 06:54 RBC 4.85 M/mm3 (3.65-5.03) 09/13/19 06:54 Hgb 13.5 gm/dl (10.1-14.3) 09/13/19 06:54 Hct 39.5 % (30.3-42.9) 09/13/19 06:54 MCV 82 fl (79-97) 09/13/19 06:54 MCH 28 pg (28-32) 09/13/19 06:54 MCHC 34 % (30-34) 09/13/19 06:54 RDW 14.7 % (13.2-15.2) 09/13/19 06:54 Plt Count 132 K/mm3 (140-440) L 09/13/19 06:54 Lymph % (Auto) 36.4 % (13.4-35.0) H 09/13/19 06:54 [place] % (Auto) 6.0 % (0.0-7.3) 09/13/19 06:54 Eos % (Auto) 1.1 % (0.0-4.3) 09/13/19 06:54 Baso % (Auto) 0.5 % (0.0-1.8) 09/13/19 06:54 Lymph # 2.2 K/mm3 (1.2-5.4) 09/13/19 06:54 [place] # 0.4 K/mm3 (0.0-0.8) 09/13/19 06:54 Eos # 0.1 K/mm3 (0.0-0.4) 09/13/19 06:54 Baso # 0.0 K/mm3 (0.0-0.1) 09/13/19 06:54 Seg Neutrophils % 56.0 % (40.0-70.0) 09/13/19 06:54 Seg Neutrophils # 3.4 K/mm3 (1.8-7.7) 09/13/19 06:54 PT 12.6 Sec. (12.2-14.9) 09/13/19 06:54 INR 0.95 (0.87-1.13) 09/13/19 06:54 APTT 35.4 Sec. (24.2-36.6) 09/13/19 06:54 Sodium 140 mmol/L (137-145) 09/13/19 06:54 Potassium 3.8 mmol/L (3.6-5.0) 09/13/19 06:54 Chloride 101.5 mmol/L (98-107) 09/13/19 06:54 Carbon Dioxide 25 mmol/L (22-30) 09/13/19 06:54 Anion Gap 17 mmol/L 09/13/19 06:54 BUN 16 mg/dL (7-17) 09/13/19 06:54 Creatinine 0.6 mg/dL (0.7-1.2) L 09/13/19 06:54 Estimated GFR > 60 ml/min 09/13/19 06:54 BUN/Creatinine Ratio 27 % 09/13/19 06:54 Glucose 194 mg/dL (65-100) H 09/13/19 06:54 POC Glucose 125 (70-105) H 09/13/19 11:49 Hemoglobin A1c 7.5 % (4-6) H 09/13/19 06:54 Lactic Acid 2.00 mmol/L (0.7-2.0) 09/13/19 08:31 Calcium 9.6 mg/dL (8.4-10.2) 09/13/19 06:54 Magnesium 1.60 mg/dL (1.7-2.3) L 09/13/19 06:54 Total Creatine Kinase 114 units/L (30-135) 09/13/19 06:54 CK-MB (CK-2) 3.8 ng/mL (0.0-4.0) 09/13/19 06:54 CK-MB (CK-2) Rel Index 3.3 (0-4) 09/13/19 06:54 Troponin T < 0.010 ng/mL (0.00-0.029) 09/13/19 06:54 TSH 1.260 mlU/mL (0.270-4.200) 11/07/19 06:54 Free T4 1.20 ng/dL (0.76-1.46) 09/13/19 06:54 Urine Color Yellow (Yellow) 09/13/19 Unknown Urine Turbidity Clear (Clear) 09/13/19 Unknown Urine pH 6.0 (5.0-7.0) 09/13/19 Unknown Ur Specific [place] 1.020 (1.003-1.030) 09/13/19 Unknown Urine Protein <15 mg/dl mg/dL (Negative) 09/13/19 Unknown Urine Glucose (UA) Neg mg/dL (Negative) 09/13/19 Unknown Urine Ketones Neg mg/dL (Negative) 09/13/19 Unknown Urine Blood Neg (Negative) 09/13/19 Unknown Urine Nitrite Neg (Negative) 09/13/19 Unknown Urine Bilirubin Neg (Negative) 09/13/19 Unknown Urine Urobilinogen < 2.0 mg/dL (<2.0) 09/13/19 Unknown Ur Leukocyte Esterase Neg (Negative) 09/13/19 Unknown Urine WBC (Auto) 1.0 /HPF (0.0-6.0) 09/13/19 Unknown Urine RBC (Auto) < 1.0 /HPF (0.0-6.0) 09/13/19 Unknown U Epithel Cells (Auto) 2.0 /HPF (0-13.0) 09/13/19 Unknown Urine Mucus Few /HPF 09/13/19 Unknown - Imaging and Cardiology EKG: image reviewed (sinus bradycardia) Assessment and Plan Assessment and plan: Sinus bradycardia -Patient to have any symptoms in the emergency department -Cardiology consulted and will recommend to do echo Palpitation - after she came to the hospital no tachycardia or a.fib - Will continue to monitor Uncontrolled hypertension - Resume home medications, and adjust medications as needed - Discontinue clonidine and beta blockers - Monitor blood pressure History of CAD - Stable, patient didn't have any chest pain Diabetes mellitus - On sliding scale insulin, ADA diet, adjust insulin as needed DVT prophylaxis - on heparin CODE STATUS; full Disposition; continue to telemetry floor. Advance Directives: Yes VTE prophylaxis?: Chemical Plan of care discussed with patient/family: Yes
[2019-09-13] MEDS: LOSARTAN 50 MG TAB PO SCH (15:51)
[2019-09-13] MEDS: carvediloL 12.5 MG TAB PO SCH (21:04)
[2019-09-13] MEDS: HEPARIN 5,000 UNIT/1 ML VIAL SUB-Q SCH (21:07)
[2019-09-14] MEDS: SODIUM CHLORIDE NASAL SPRAY 44ML NS PRN ×2 (04:02→06:53)
[2019-09-14 05:01] LABS: BUN/Creatinine Ratio 22; Blood Urea Nitrogen 13 mg/dL (7-17); Calcium 9.4 mg/dL (8.4-10.2); Hemolysis Index 9
[2019-09-14] MEDS: HEPARIN 5,000 UNIT/1 ML VIAL SUB-Q SCH ×2 (06:54→14:50)
[2019-09-14] MEDS ORDERED: REGADENOSON 0.4 MG/5 ML INJ IV ONE (08:13)
[2019-09-14] MEDS: INSULIN LISPRO 100 UNIT/ML SUB-Q SCH ×2 (08:30→12:25)
[2019-09-14] MEDS ORDERED: ASPIRIN 81 MG TAB CHEW PO SCH (10:00)
[2019-09-14] MEDS ORDERED: CLOPIDOGREL 75 MG TAB PO SCH (10:00)
--- NOTE | 2019-09-14 10:50 | Progress Note ---
Assessment and Plan Echo reviewed - EF 55-60%, no significant abnormalities. S/p lexiscan MPI stress test this morning which was negative. tele reviewed - in SR with some SB overnight, no acute events noted. Optimize anti-hypertensive regimen - cont coreg and losartan, initiate amlodipine. Cont home ASA and plavix. Currently stable cardiac status. Pt may discharge home from cardiology standpoint. Recommend follow up in our office with Dr. Higuera within 1-2 weeks of discharge ([phone]). The patient has been seen in conjunction with Dr. Higuera who agrees with the assessment and plan of care. - Patient Problems (1) Sinus bradycardia Current Visit: Yes Status: Acute (2) Palpitations Current Visit: Yes Status: Acute (3) Poorly controlled blood pressure Current Visit: Yes Status: Chronic (4) Type 2 diabetes mellitus with hyperglycemia Current Visit: Yes Status: Chronic Qualifiers: Diabetes mellitus buttermaker helper insulin use: with buttermaker helper use Qualified Code(s): E11.65 - Type 2 diabetes mellitus with hyperglycemia; Z79.4 - buttermaker helper (current) use of insulin (5) CAD (coronary artery disease) Current Visit: Yes Status: Chronic (6) Stented coronary artery Current Visit: Yes Status: Chronic (7) Obesity Current Visit: Yes Status: Chronic (8) Hypomagnesemia Current Visit: Yes Status: Acute Subjective Date of service: 09/14/19 Principal diagnosis: palpitations Interval history: pt for stress test, no current complaints. tele reviewed - in SR with some SB overnight, no acute events noted. Objective Last Vital Signs Temp 98.3 F 09/14/19 07:26 Pulse 69 09/14/19 07:26 Resp 18 09/14/19 07:26 BP 182/88 09/14/19 08:38 Pulse Ox 99 09/14/19 07:26 - Physical Examination General: No Apparent Distress HEENT: Positive: PERRL, Normocephaly, Mucus Membranes Moist Neck: Positive: neck supple, trachea midline Cardiac: Positive: Reg Rate and Rhythm, S1/S2 Lungs: Positive: Decreased Breath Sounds Neuro: Positive: Grossly Intact Abdomen: Negative: Tender Skin: Negative: Rash Musculoskeletal: No Pain Extremities: Absent: edema - Labs and Meds Comprehensive Metabolic Panel 09/14/19 Range/Units 03:54 Sodium 141 (137-145) mmol/L Potassium 3.9 (3.6-5.0) mmol/L Chloride 104.1 (98-107) mmol/L Carbon Dioxide 24 (22-30) mmol/L BUN 13 (7-17) mg/dL Creatinine 0.6 L (0.7-1.2) mg/dL Glucose 193 H (65-100) mg/dL Calcium 9.4 (8.4-10.2) mg/dL - Imaging and Cardiology EKG: image reviewed (sinus bradycardia) Echo: pending - EKG Sinus rhythms and dysrhythmias: sinus bradycardia
[2019-09-14] MEDS ORDERED: amLODIPine 5 MG TAB PO SCH (11:00)
--- NOTE | 2019-09-14 11:07 | Treadmill Report ---
NUCLEAR CARDIAC IMAGING STUDY. INDICATION FOR PROCEDURE: Chest pain. Informed consent was obtained. Vasodilator stress was performed following the intravenous administration of 0.4 mg of Lexiscan per protocol. Nuclear cardiac imaging was performed following the intravenous administration of technetium-99m Myoview per protocol. Gated SPECT imaging demonstrates a post-stress left ventricular ejection fraction of 60% with normal wall motion. Myocardial perfusion imaging demonstrates no significant cavity change between stress and rest. No significant stress induced perfusion defects are seen. The lexiscan stress ecg is inconclusive. Mild baseline non specific stt changes became somewhat more prominent following iv lexiscan. this finding in the presence of normal perfusion and function is of uncertain significance. Nuclear cardiac imaging demonstrates grossly normal post-stress left ventricular systolic function with no significant evidence of myocardial ischemia or necrosis. [facility]# [id number] NARCISA/ALLIE SANTOS
--- NOTE | 2019-09-14 11:46 | Discharge Summary ---
Providers - Providers Date of Admission: 09/13/19 09:59 Date of discharge: 09/14/19 Attending physician: LORNA JOSE MD 09/13/19 10:14 Consult to Physician [CONS] Routine Comment: Consulting Provider: AALIYAH PRADHAN Physician Instructions: Reason For Exam: tachybrady syndrome 09/14/19 09:23 Physical Therapy Evaluation and Treat [CONS] Routine Comment: Reason For Exam: Weakness Primary care physician: [employer] Hospitalization Reason for admission: sinus bradycardia, heart racing Condition: Stable Pertinent studies: Stress test Echo - Unremarkable Hospital course: 69-year-old -[place] female with past medical history significant for ME status post stent, hypertension, hyperlipidemia, diabetes mellitus type 2 presented to the emergency department complaining of racing of heart that started around 2-3 am this morning. Patient stated the episode lasts for 5 minutes. The heart racing was associated with shortness of breath, dizziness, blurring of vision and hand cramps. Patient said everything resolved after 5 minutes. Patient had heart racing for the last one and half week every day in the morning and that resolved with sitting down and taking a deep breath. But this morning sitting down and taking deep breath didn't help her and presented to the ER. Patient denied any chest pain, fever, cough or chills. Patient was admitted to the floor and was monitored on telemetry, patient had sinus bradycardia but no symptoms while she was in the hospital. Overnight the patient didn't have any events, heart rate was within normal limit. Cardiology consulted and did recommend a stress test which were negative. Cardiology for discharge with follow-up in the office. Patient's blood pressure were controlled and medications were adjusted. Disposition: - TO HOME OR SELFCARE Time spent for discharge: 32 minutes - Discharge Diagnoses (1) Bradycardia Status: Acute (2) Palpitations Status: Acute (3) Obesity Status: Chronic (4) Poorly controlled blood pressure Status: Chronic (5) Stented coronary artery Status: Chronic (6) Type 2 diabetes mellitus with hyperglycemia Status: Chronic Qualifiers: Diabetes mellitus terminal carman insulin use: with halfway use Qualified Code(s): E11.65 - Type 2 diabetes mellitus with hyperglycemia; Z79.4 - FPC (current) use of insulin Core Measure Documentation - Palliative Care Palliative Care/ Comfort Measures: Not Applicable - Core Measures Any of the following diagnoses?: none Exam - Physical Exam Narrative exam: Not in cardiopulmonary distress. The patient appeared well nourished and normally developed. Vital signs as documented. Head exam is unremarkable. No scleral icterus . Neck is without jugular venous distension, thyromegaly, or carotid bruits. Lungs are clear to auscultation. Cardiac exam reveals regular rate and Rhythm. Abdominal exam reveals normal bowel sounds, nontender, no organomegaly. Extremities are nonedematous and both femoral and pedal pulses are normal. [employer]: Alert and oriented 3. No focal weakness. - Constitutional Vitals: Temp Pulse Resp BP Pulse Ox 98.3 F 69 18 182/88 99 09/14/19 07:26 09/14/19 07:26 09/14/19 07:26 09/14/19 08:38 09/14/19 07:26 Plan Activity: no restrictions Weight Bearing Status: Full Weight Bearing Diet: low salt, diabetic Follow up with: PRIMARY CAREMD [Primary Care Provider] - 3-5 Days ZACK ROTH MD [Staff Physician] - 14 Days Prescriptions: amLODIPine 5 mg PO QDAY #30 tablet
[2019-09-14] MEDS: DOCUSATE SODIUM 100 MG CAP PO SCH (13:23)
[2019-09-14] MEDS: carvediloL 12.5 MG TAB PO SCH (13:24)
[2019-09-14 13:26] VITALS: BP 140/82
[2019-09-14] MEDS: LOSARTAN 50 MG TAB PO SCH (13:26)
--- NOTE | 2019-09-14 13:35 | Treadmill Report ---
LEXISCAN STRESS TEST FINDINGS: The baseline electrocardiogram demonstrates sinus rhythm with minor nonspecific repolarization changes. Following the intravenous administration of 0.4 mg of Lexiscan per protocol, there were no significant ischemic symptoms. The ST segment response to intravenous Lexiscan demonstrates nonspecific repolarization abnormalities, which are somewhat more pronounced than the baseline changes. The Lexiscan stress test is clinically nonischemic, but electrocardiographically inconclusive. Nuclear cardiac imaging report to follow. [facility]# [id number] NARCISA/NTS
== END 2019-09-14 15:50 | disposition home or self-care (01) ==
LOC: ED 05:16 → 2B-ACE 09:59
PROVIDERS: ADMIT Internal Medicine; ATTEND Internal Medicine
DX: R00.1 Bradycardia, unspecified (principal); R00.2 Palpitations; I10 Essential (primary) hypertension; I25.10 Atherosclerotic heart disease of native coronary artery without angina pectoris; I25.2 Old myocardial infarction; E66.9 Obesity, unspecified; E11.65 Type 2 diabetes mellitus with hyperglycemia; R74.0 Nonspecific elevation of levels of transaminase and lactic acid dehydrogenase [LDH]; E83.42 Hypomagnesemia; Z90.710 Acquired absence of both cervix and uterus; Z79.82 Long term (current) use of aspirin; Z79.4 Long term (current) use of insulin; Z95.1 Presence of aortocoronary bypass graft; Z68.34 Body mass index [BMI] 34.0-34.9, adult
CPT/HCPCS: 36415; 71045; 78452; 80048; 81001; 82140; 82550; 82553; 82962; 83036; 83735; 84439; 84443; 84484; 85025; 85610; 85730; 87040; 87086; 93005; 93010; 93017; 93306; 96365; 96372; 96375; 96376; 99284; A9270; A9502; G0378; J0360; J1644; J2405; J2785; J3475; J1815